=== PATIENT | male | born 1980 | race African-American/Black ===

== ENCOUNTER 2017-05-31 09:32 | Emergency (ER) | payer OTHER ==
[~2017-05-31] VITALS: Ht 177.8 cm; Wt 100.0 kg
[~2017-05-31 09:32] MED LIST: FLEXERIL PO; NO; NORCO1 TA1 PO; PROTONIX40 MG PO; ULTRAM50 M1 PO
[2017-05-31 09:58] LABS: URINE BILIRUBIN - DIPSTICK NEGATIVE (NEGATIVE); URINE BLOOD DIPSTICK NEGATIVE (NEGATIVE); URINE COLOR YELLOW; URINE GLUCOSE - DIPSTICK NEGATIVE (NEGATIVE); URINE KETONE NEGATIVE (NEGATIVE); URINE LEUK ESTERASE NEGATIVE (NEGATIVE); URINE NITRITE - DIPSTICK NEGATIVE (Negative); URINE PROTEIN - DIPSTICK NEGATIVE (NEG-TRACE); URINE UROBILINOGEN - DIPSTICK 0.2 E.U./dL (0.2)
[2017-05-31 10:08] LABS: HEMATOCRIT 44.2 % (39.0-50.0); HEMOGLOBIN 15.3 g/dl (14.0-18.0); IMMATURE GRANULOCYTES 0.2 % (0.0-1.0); MEAN CELL VOLUME 92.9 fL CALC (80.0-100.0); MEAN CORPUSCULAR HGB 32.1 pG CALC (26.0-32.0); MEAN CORPUSCULAR HGB CONC 34.6 g/L CALC (32.0-36.0); NEUT# 2.47 thou/uL (1.82-7.42); RED BLOOD COUNT 4.76 mill/uL (4.70-6.10); RED CELL DISTRI WIDTH 12.9 % (11.5-15.5)
[2017-05-31 10:23] LABS: URINE CLARITY CLEAR
[2017-05-31 10:25] LABS: ALBUMIN 4.1 g/dL (3.2-5.0); ALKALINE PHOSPHATASE 65 u/l (38-126); ANION GAP 14 (6-22 (CALC)); BILIRUBIN, TOTAL 0.3 mg/dL (0.0-1.4); BUN 14 mg/dL (9-20); BUN/CREATININE RATIO 12 (12-20 (CALC)); CALCIUM 10.7 mg/dL (8.4-10.2); CARBON DIOXIDE 25 mmol/l (22-30); CHLORIDE 110 mmol/l (95-108); CREATININE 1.2 mg/dL (0.7-1.3); GFR > 60 ML/MIN (>=60 (CALC)); GFR FOR AFR.AMER. > 60 ML/MIN (>=60 (CALC)); GLUCOSE 118 mg/dL (75-110); LIPASE 68 u/l (23-300); POTASSIUM 4.3 mmol/l (3.5-5.1); SGOT/AST 38 u/l (17-59); SGPT/ALT 56 u/l (21-72); SODIUM 144 mmol/l (137-146); TOTAL PROTEIN 6.7 g/dL (6.3-8.2)
[2017-05-31] MEDS ORDERED: CEPHALEXIN500 M1 PO (11:00)
[2017-05-31 11:24] VITALS: BP 131/81
== END 2017-05-31 11:25 | disposition home or self-care (01) | DRG 696 ==
LOC: ED 09:32
PROVIDERS: Family Medicine
DX: R31.9 Hematuria, unspecified (principal); R10.30 Lower abdominal pain, unspecified; R30.0 Dysuria

== ENCOUNTER 2019-04-08 14:57 | Emergency (ER) | payer MEDICAID ==
[~2019-04-08] VITALS: Ht 177.8 cm; Wt 100.0 kg
[~2019-04-08 14:57] MED LIST changes: +CEPHALEXIN500 M1 PO
[2019-04-08 17:05] VITALS: BP 126/72
== END 2019-04-08 17:05 | disposition home or self-care (01) ==
LOC: ED 14:57
DX: S97.112A Crushing injury of left great toe, initial encounter (principal); W31.89XA Contact with other specified machinery, initial encounter

== ENCOUNTER 2019-06-15 10:28 | Emergency (ER) | payer SELFPAY ==
[2019-06-15] MEDS ORDERED: AMOXICILLIN500 M2 PO (10:49)
[2019-06-15 11:22] VITALS: BP 115/71
== END 2019-06-15 11:22 | disposition home or self-care (01) | DRG 153 ==
LOC: ED 10:28
DX: J06.9 Acute upper respiratory infection, unspecified (principal); F17.210 Nicotine dependence, cigarettes, uncomplicated

== ENCOUNTER 2020-03-01 16:35 | Emergency (ER) | payer OTHER ==
[~2020-03-01] VITALS: Ht 177.8 cm; Wt 90.0 kg
[~2020-03-01 16:35] MED LIST changes: +AMOXICILLIN500 M2 PO
[2020-03-01 17:48] VITALS: BP 118/77
--- NOTE | 2020-03-03 13:08 | NUR ---
Patient called for Covid results. Advised patient that results were negative. Patient requesting a copy of result. 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
== END 2020-03-01 17:54 | disposition home or self-care (01) ==
LOC: ED 16:35
DX: J06.9 Acute upper respiratory infection, unspecified (principal); F17.210 Nicotine dependence, cigarettes, uncomplicated; Z20.828 Contact with and (suspected) exposure to other viral communicable diseases

== ENCOUNTER 2020-08-01 10:09 | Emergency (ER) | payer OTHER ==
[~2020-08-01] VITALS: Ht 177.8 cm; Wt 109.0 kg
[2020-08-01] MEDS ORDERED: CODEINE/GUAIFEN1 SOL PO (11:19)
[2020-08-01] MEDS ORDERED: AMOX/K CLAV875 M1 PO (11:19)
[2020-08-01] MEDS ORDERED: FLONASE AL50 MCG/ACT (11:19)
[2020-08-01 11:23] VITALS: BP 112/68
== END 2020-08-01 11:24 | disposition home or self-care (01) ==
LOC: ED 10:09
DX: J32.9 Chronic sinusitis, unspecified (principal); J40 Bronchitis, not specified as acute or chronic; F17.200 Nicotine dependence, unspecified, uncomplicated; Z20.822 Contact with and (suspected) exposure to COVID-19

== ENCOUNTER 2020-11-02 09:35 | Emergency (ER) | payer OTHER ==
[~2020-11-02] VITALS: Ht 177.8 cm; Wt 104.5 kg
[~2020-11-02 09:35] MED LIST changes: +AMOX/K CLAV875 M1 PO; +CODEINE/GUAIFEN1 SOL PO; +FLONASE AL50 MCG/ACT
[2020-11-02] MEDS ORDERED: BACTRIM DS1 TAB PO (10:10)
[2020-11-02 10:23] VITALS: BP 109/60
== END 2020-11-02 10:36 | disposition home or self-care (01) ==
LOC: ED 09:35
DX: L05.91 Pilonidal cyst without abscess (principal); B96.20 Unspecified Escherichia coli [E. coli] as the cause of diseases classified elsewhere; F17.210 Nicotine dependence, cigarettes, uncomplicated

== ENCOUNTER 2020-11-04 15:51 | Emergency (ER) | payer OTHER ==
[~2020-11-04] VITALS: Ht 177.8 cm; Wt 100.0 kg
[~2020-11-04 15:51] MED LIST changes: +BACTRIM DS1 TAB PO
[2020-11-04 16:48] VITALS: BP 126/75
== END 2020-11-04 16:40 | disposition home or self-care (01) ==
LOC: ED 15:51
DX: Z48.01 Encounter for change or removal of surgical wound dressing (principal); F17.200 Nicotine dependence, unspecified, uncomplicated

== ENCOUNTER 2020-12-14 16:39 | Emergency (ER) | payer OTHER ==
[2020-12-14 18:43] VITALS: BP 126/85
== END 2020-12-14 17:45 | disposition home or self-care (01) ==
LOC: ED 16:39
DX: U07.1 COVID-19 (principal); F17.210 Nicotine dependence, cigarettes, uncomplicated

== ENCOUNTER 2020-12-19 18:48 | Emergency (ER) | payer OTHER ==
[2020-12-19 19:53] LABS: HEMATOCRIT 47.5 % (39.0-50.0); HEMOGLOBIN 16.8 g/dl (14.0-18.0); IMMATURE GRANULOCYTES 0.3 % (0.0-5.0); MEAN CELL VOLUME 92.2 fL CALC (80.0-100.0); MEAN CORPUSCULAR HGB 32.6 pG CALC (26.0-32.0); MEAN CORPUSCULAR HGB CONC 35.4 g/dL CAL (32.0-36.0); NEUT# 6.67 thou/uL (1.82-7.42); RED BLOOD COUNT 5.15 mill/uL (4.70-6.10); RED CELL DISTRI WIDTH 12.7 % (11.5-15.5)
[2020-12-19 20:09] LABS: ALBUMIN 4.7 g/dL (3.2-5.0); ALKALINE PHOSPHATASE 56 u/l (38-126); BUN 21 mg/dL (9-20); BUN/CREATININE RATIO 15 (12-20 (CALC)); CHLORIDE 103 mmol/l (95-108); CREATININE 1.4 mg/dL (0.7-1.3); GFR 57 ML/MIN (>=60 (CALC)); GFR FOR AFR.AMER. > 60 ML/MIN (>=60 (CALC)); POTASSIUM 4.3 mmol/l (3.5-5.1); SGOT/AST 42 u/l (17-59)
[2020-12-19 20:10] LABS: ANION GAP 17 (6-22 (CALC)); BILIRUBIN, TOTAL 0.7 mg/dL (0.0-1.4); CARBON DIOXIDE 19 mmol/l (22-30); SODIUM 135 mmol/l (137-146); TOTAL PROTEIN 8.8 g/dL (6.3-8.2)
[2020-12-19] MEDS ORDERED: FLONASE AL50 MCG/ACT (20:35)
[2020-12-19 21:10] VITALS: BP 144/62
== END 2020-12-19 21:10 | disposition home or self-care (01) ==
LOC: ED 18:48
DX: U07.1 COVID-19 (principal); K59.00 Constipation, unspecified; I10 Essential (primary) hypertension; F17.210 Nicotine dependence, cigarettes, uncomplicated

== ENCOUNTER 2022-03-13 07:12 | Emergency (ER) | payer OTHER ==
[2022-03-13] VITALS (16 sets, daily range): BP systolic 102–155; BP diastolic 39–81
[~2022-03-13] VITALS: Ht 177.8 cm; Wt 100.0 kg
[2022-03-13] MEDS ORDERED: VENTOLIN HFA108 MCG PO (10:59)
[2022-03-13] MEDS ORDERED: PREDNISONE20 MG PO (10:59)
== END 2022-03-13 11:10 | disposition home or self-care (01) ==
LOC: ED 07:12
DX: R05.9 Cough, unspecified (principal); R06.02 Shortness of breath; I10 Essential (primary) hypertension; F17.210 Nicotine dependence, cigarettes, uncomplicated

== ENCOUNTER 2022-07-16 09:57 | Emergency (ER) | payer OTHER ==
[~2022-07-16 09:57] MED LIST changes: +PREDNISONE20 MG PO; +VENTOLIN HFA108 MCG PO
== END 2022-07-16 11:25 | disposition left against medical advice (07) | DRG 951 ==
LOC: ED 09:57 → LWOBS 11:25
DX: Z53.21 Procedure and treatment not carried out due to patient leaving prior to being seen by health care provider (principal)